=== PATIENT | female | born 1995 ===

== ENCOUNTER 2022-03-09 17:00 | Inpatient (IN) | payer OTHER ==
[~2022-03-09] VITALS: Ht 160 cm; Wt 68.0 kg
[2022-03-09] MEDS ORDERED: PRENATAL CAPLE1 EAC1 PO (18:12)
== END 2022-04-03 14:14 | disposition home or self-care (01) | DRG 831 ==
LOC: LDR 17:00 → OB/GYN 17:00
PROVIDERS: ADMIT Student in an Organized Health Care Education/Training Program; ATTEND Student in an Organized Health Care Education/Training Program
PROC: 4A1HXCZ Monitoring of Products of Conception, Cardiac Rate, External Approach (ICD-10-PCS; principal; 2022-03-09)
PROC: BY4CZZZ Ultrasonography of Second Trimester, Single Fetus (ICD-10-PCS; 2022-03-10)
PROC: BU4CZZZ Ultrasonography of Uterus and Ovaries (ICD-10-PCS; 2022-03-10)
PROC: BY4FZZZ Ultrasonography of Third Trimester, Single Fetus (ICD-10-PCS; 2022-04-02)
PROC: BU4CZZZ Ultrasonography of Uterus and Ovaries (ICD-10-PCS; 2022-04-02)
DX: O26.872 Cervical shortening, second trimester (principal); O60.02 Preterm labor without delivery, second trimester; O26.873 Cervical shortening, third trimester; Z3A.24 24 weeks gestation of pregnancy; Z3A.28 28 weeks gestation of pregnancy; O26.843 Uterine size-date discrepancy, third trimester; Z20.822 Contact with and (suspected) exposure to COVID-19

== ENCOUNTER 2022-06-10 05:39 | Inpatient (IN) | payer OTHER ==
[~2022-06-10] VITALS: Ht 160 cm; Wt 73.9 kg
[~2022-06-10 05:39] MED LIST: PRENATAL CAPLE1 EAC1 PO
== END 2022-06-12 14:06 | disposition home or self-care (01) | DRG 807 ==
LOC: LDR 05:39 → OB/GYN 18:12
PROVIDERS: ADMIT Obstetrics & Gynecology; ATTEND Obstetrics & Gynecology
PROC: 10E0XZZ Delivery of Products of Conception, External Approach (ICD-10-PCS; principal; 2022-06-10)
PROC: 0UQG7ZZ Repair Vagina, Via Natural or Artificial Opening (ICD-10-PCS; 2022-06-10)
PROC: 4A1HXCZ Monitoring of Products of Conception, Cardiac Rate, External Approach (ICD-10-PCS; 2022-06-10)
DX: O71.4 Obstetric high vaginal laceration alone (principal); Z37.0 Single live birth; Z3A.37 37 weeks gestation of pregnancy; Z20.822 Contact with and (suspected) exposure to COVID-19

== ENCOUNTER 2023-11-23 14:22 | Outpatient (CLI) | payer OTHER | END 2023-11-23 14:23 | disposition home or self-care (01) | LOC: PRENATAL 14:22 | PROVIDERS: ATTEND Obstetrics & Gynecology Maternal & Fetal Medicine | DX: O35.9XX0 Maternal care for (suspected) fetal abnormality and damage, unspecified, not applicable or unspecified (principal); O35.3XX0 Maternal care for (suspected) damage to fetus from viral disease in mother, not applicable or unspecified; O44.02 Complete placenta previa NOS or without hemorrhage, second trimester; O26.872 Cervical shortening, second trimester; Z3A.21 21 weeks gestation of pregnancy ==

== ENCOUNTER 2024-01-11 10:06 | Outpatient (CLI) | payer OTHER | END 2024-01-11 10:07 | disposition home or self-care (01) | LOC: PRENATAL 10:06 | PROVIDERS: ATTEND Obstetrics & Gynecology Maternal & Fetal Medicine | DX: O26.849 Uterine size-date discrepancy, unspecified trimester (principal); O26.879 Cervical shortening, unspecified trimester; Z3A.28 28 weeks gestation of pregnancy ==

== ENCOUNTER 2024-03-12 10:51 | Inpatient (IN) | payer OTHER ==
[~2024-03-12] VITALS: Ht 160 cm; Wt 75.3 kg
[2024-03-12 11:20] VITALS: BP 123/87
[2024-03-12] MEDS ORDERED: RINGERS SOLUTION,LACTATED 1,000 ML IV SCH (11:30)
[2024-03-12] MEDS ORDERED: AMPICILLIN SODIUM 2,000 MG VIAL IV ONE (11:30)
[2024-03-12 11:50] LABS: URINE APPEARANCE Clear; URINE BILIRRUBIN Negative (NEGATIVE); URINE BLOOD Negative; URINE COLOR Yellow; URINE GLUCOSE Negative (NEGATIVE); URINE KETONE Trace (NEGATIVE); URINE LEUKOCYTE Trace; URINE NITRATE Negative; URINE PROTEIN Negative (NEGATIVE)
[2024-03-12 11:54] LABS: URINE BACTERIA 74.3 uL (0.0-1933); URINE EPITHELIAL CELLS 12.2 uL (0.0-38.8); URINE RBC 6.4 uL (0.0-20.8); URINE WBC 7.4 uL (0.0-23.2)
[2024-03-12 11:56] LABS: HEMATOCRIT 37.6 % (36.0-45.00); HEMOGLOBIN 12.7 g/dL (12.0-15.00); MEAN CORPUSCULAR HEMOGLOBIN 25.6 pg (27.00-32.0); MEAN CORPUSCULAR HGB CONC 33.7 g/dl (32.0-36.0); PLATELET COUNT 318 K/uL (150-450); RED BLOOD COUNT 4.95 M/uL (4.00-6.00); RED CELL DISTRIBUTION WIDTH 15.3 % (11.5-14.5)
[2024-03-12 12:24] LABS: PARTIAL THROMBOPLASTIN TIME 29.3 SECONDS (22.0-34.0); PROTHROMBIN TIME 10.9 SECONDS (9.0-11.5)
[2024-03-12] MEDS ORDERED: OXYTOCIN 500 ML IV SCH (13:15)
[2024-03-12 13:36] LABS: ALBUMIN 2.9 gm/dL (3.4-5.0); BILIRUBIN TOTAL 0.7 mg/dL (0.3-1.2); CALCIUM 9.1 mg/dL (8.5-10.1); CREATININE SERUM 0.5 mg/dL (0.55-1.02); GFR 144.87; GLOBULINA 4.5 G/DL (2.4-3.5); POTASSIUM 3.81 mEq/L (3.5-5.1); TOTAL PROTEIN 7.4 gm/dL (6.4-8.2)
[2024-03-12] MEDS ORDERED: IBUprofen 400 MG TABLET PO PRN (16:00)
[2024-03-12] MEDS ORDERED: OXYTOCIN 1,000 ML IV SCH (16:00)
[2024-03-12] MEDS ORDERED: CHLORHEXIDINE GLUCONATE 120 ML BOTTLE TOP SCH (16:00)
[2024-03-12 16:06] VITALS: BP 122/84
[2024-03-12 16:56] VITALS: BP 127/83
[2024-03-12 17:00] VITALS: BP 117/86
[2024-03-12] MEDS ORDERED: AMPICILLIN SODIUM 1,000 MG VIAL IV SCH (17:00)
[2024-03-12 17:28] VITALS: BP 102/72
[2024-03-12 17:45] VITALS: BP 115/80
[2024-03-13 01:06] VITALS: BP 110/78
[2024-03-13 08:00] VITALS: BP 115/81
[2024-03-13 17:38] VITALS: BP 114/78
[2024-03-13 20:57] VITALS: BP 129/84
[2024-03-14 00:53] VITALS: BP 105/69
[2024-03-14 05:41] VITALS: BP 104/68
[2024-03-14 08:44] VITALS: BP 110/72
[2024-03-14 16:21] VITALS: BP 135/88
== END 2024-03-14 17:31 | disposition home or self-care (01) | DRG 805 ==
LOC: LDR 10:51 → OB/GYN 16:46
PROVIDERS: ADMIT Obstetrics & Gynecology; ATTEND Obstetrics & Gynecology
PROC: 10E0XZZ Delivery of Products of Conception, External Approach (ICD-10-PCS; principal; 2024-03-12)
PROC: 0HQ9XZZ Repair Perineum Skin, External Approach (ICD-10-PCS; 2024-03-12)
PROC: 4A1HXCZ Monitoring of Products of Conception, Cardiac Rate, External Approach (ICD-10-PCS; 2024-03-12)
DX: O70.0 First degree perineal laceration during delivery (principal); O60.14X0 Preterm labor third trimester with preterm delivery third trimester, not applicable or unspecified; Z37.0 Single live birth; O26.872 Cervical shortening, second trimester; O69.81X0 Labor and delivery complicated by cord around neck, without compression, not applicable or unspecified; O99.824 Streptococcus B carrier state complicating childbirth; Z3A.36 36 weeks gestation of pregnancy; Z20.822 Contact with and (suspected) exposure to COVID-19

== ENCOUNTER 2024-05-03 06:17 | Day surgery (SDC) | payer OTHER ==
[2024-04-23 08:54] LABS: URINE APPEARANCE Clear; URINE BILIRRUBIN Negative (NEGATIVE); URINE BLOOD Negative; URINE COLOR Yellow; URINE GLUCOSE Negative (NEGATIVE); URINE KETONE Negative (NEGATIVE); URINE LEUKOCYTE Trace; URINE NITRATE Negative; URINE PROTEIN Negative (NEGATIVE)
[2024-04-23 08:56] LABS: HEMATOCRIT 36.1 % (36.0-45.00); MEAN CELL VOLUME 77.4 fL (80.00-100.00); MEAN CORPUSCULAR HEMOGLOBIN 25.6 pg (27.00-32.0); MEAN CORPUSCULAR HGB CONC 33.1 g/dl (32.0-36.0); PLATELET COUNT 436 K/uL (150-450); RED BLOOD COUNT 4.67 M/uL (4.00-6.00)
[2024-04-23 09:04] LABS: URINE BACTERIA 1067.2 uL (0.0-1933); URINE EPITHELIAL CELLS 85.8 uL (0.0-38.8)
[2024-04-23 09:18] LABS: INR 1.07; PARTIAL THROMBOPLASTIN TIME 30.7 SECONDS (22.0-34.0); PROTHROMBIN TIME 11.6 SECONDS (9.0-11.5)
[2024-04-23 09:48] LABS: URINE CAST 0.14 uL (0.0-1.40); URINE RBC 1.9 uL (0.0-20.8)
[2024-04-23 10:16] LABS: ALBUMIN 3.8 gm/dL (3.4-5.0); BILIRUBIN TOTAL 0.52 mg/dL (0.3-1.2); CALCIUM 9.3 mg/dL (8.5-10.1); CREATININE SERUM 0.57 mg/dL (0.55-1.02); GFR 124.54; GLOBULINA 3.5 G/DL (2.4-3.5); POTASSIUM 3.87 mEq/L (3.5-5.1); TOTAL PROTEIN 7.3 gm/dL (6.4-8.2); TSH 1.23 uIU/mL (0.358-3.74)
[~2024-05-03] VITALS: Ht 160 cm; Wt 71.2 kg
[2024-05-03] MEDS ORDERED: CEFOXITIN SODIUM 2,000 MG VIAL IV ONE (09:42)
[2024-05-03] MEDS ORDERED: POVIDONE-IODINE 118 ML BOTT TOP ONE (11:57)
[2024-05-03] MEDS ORDERED: MORPHINE SULFATE 4 MG/ML VIAL IV PRN (12:45)
[2024-05-03] MEDS ORDERED: PROMETHAZINE HCL 50 MG/ML AMPUL IM ONE (12:45)
[2024-05-03] MEDS ORDERED: Tylenol #3 PO (12:46)
[2024-05-03] MEDS ORDERED: NAPR500T14 PO (12:46)
[2024-05-03] MEDS ORDERED: MORPHINE SULFATE 4 MG/ML VIAL IV ONE ×2 (13:45→14:15)
== END 2024-05-03 15:10 | disposition home or self-care (01) ==
LOC: CIR.AMB 06:17
PROVIDERS: ATTEND Obstetrics & Gynecology
DX: Z30.2 Encounter for sterilization (principal)